=== PATIENT | male | born 1985 | race American Indian/Alaskan Native ===

== ENCOUNTER 2019-10-29 22:06 | Emergency (ER) | payer MEDICAID ==
[2019-10-29 23:39] VITALS: BP 144/101
--- NOTE | 2019-10-30 01:26 | Emergency Department Report ---
ED Psych HPI - General Chief Complaint: Psych Stated Complaint: SHALONDA EVAL Time Seen by Provider: 10/30/19 01:01 Source: patient, EMS Mode of arrival: Stretcher Limitations: No Limitations - History of Present Illness Initial Comments: Patient is a 34-year-old male that was brought in by the police for mental health evaluation. Patient is calm and answering questions appropriately. Patient denies suicidal homicidal ideations. Patient denies hallucinations. Patient states that he was brought in by the police because he was involved in an argument and he was upset. Patient states he has had time to calm down and is feeling fine. Patient states he is ready to go home. Patient states he waited because the nurses and the police told him to. Patient denies chest pain. Patient denies shortness of breath. Patient states he is taking his medications for schizophrenia. Patient states he is feeling fine. Patient denies recent travel. Patient denies recent international travel. Patient denies exposure to the novel coronavirus. Patient denies sick contacts. Patient denies fever and chills. Patient denies cough. Patient denies diarrhea. Patient denies coming in contact with anybody with symptoms of the novel coronavirus.. Complaint: other -: Sudden Associated Psychiatric Symptoms: none History of same: Yes Quality: constant Improves With: none Worsens With: none Context: significant life stressor Associated Symptoms: denies other symptoms. denies: confusion, headache, shortness of breath, nausea, vomiting, syncope, insomnia Treatments Prior to Arrival: none - Related Data Allergies Allergy/AdvReac Type Severity Reaction Status Date / Time No Known Allergies Allergy Unverified 10/29/19 23:39 ED Review of Systems ROS: Stated complaint: MH EVAL Other details as noted in HPI Constitutional: denies: chills, fever Eyes: denies: eye pain, eye discharge, vision change ENT: denies: ear pain, throat pain Respiratory: denies: cough, shortness of breath, wheezing Cardiovascular: denies: chest pain, palpitations Endocrine: no symptoms reported Gastrointestinal: denies: abdominal pain, nausea, diarrhea Genitourinary: denies: urgency, dysuria Musculoskeletal: denies: back pain, joint swelling, arthralgia Skin: denies: rash, lesions Neurological: denies: headache, weakness, paresthesias Psychiatric: denies: anxiety, depression, auditory hallucinations, visual hallucinations, homicidal thoughts, suicidal thoughts Hematological/Lymphatic: denies: easy bleeding, easy bruising ED Past Medical Hx - Past Medical History Previous Medical History?: Yes Hx Psychiatric Treatment: Yes (Schizophrenia) - Surgical History Past Surgical History?: No - Family History Family history: no significant - Social History Smoking Status: Current Every Day Smoker Substance Use Type: None ED Physical Exam - General Limitations: No Limitations General appearance: alert, in no apparent distress - Head Head exam: Present: atraumatic, normocephalic - Eye Eye exam: Present: normal appearance - ENT ENT exam: Present: mucous membranes moist - Neck Neck exam: Present: normal inspection - Respiratory Respiratory exam: Present: normal lung sounds bilaterally. Absent: respiratory distress - Cardiovascular Cardiovascular Exam: Present: regular rate, normal rhythm. Absent: systolic murmur, diastolic murmur, rubs, gallop - GI/Abdominal GI/Abdominal exam: Present: soft, normal bowel sounds - Rectal Rectal exam: Present: deferred - Extremities Exam Extremities exam: Present: normal inspection - Back Exam Back exam: Present: normal inspection - Neurological Exam Neurological exam: Present: alert, oriented X3 - Psychiatric Psychiatric exam: Present: normal affect, normal mood. Absent: depressed, agitated, anxious, flat affect, manic, homicidal ideation, suicidal ideation - Skin Skin exam: Present: warm, dry, intact, normal color. Absent: rash ED Course Vital Signs 10/29/19 23:18 Temperature 99.3 F Pulse Rate 96 H Respiratory 18 Rate Blood Pressure 144/101 O2 Sat by Pulse 99 Oximetry - Reevaluation(s) Reevaluation #1: I discussed all clinical findings with patient. I discussed plan of care with patient. Patient agrees with plan of care. Patient is stable for discharge. Patient will be discharged home. Patient given discharge instructions. Patient voiced understanding of discharge instructions. 10/30/19 01:23 ED Medical Decision Making - Medical Decision Making Patient is a 34-year-old male that presents emergency room for mental evaluation by the police. Patient's symptoms are secondary to him being upset after an argument. Patient any acute psychiatric condition requiring a 1013 or an ER hold. Patient denies suicidal homicidal ideations. Patient denies hallucinations. Patient had a appropriate and fluid conversation and answers all questions appropriately. Patient is medically cleared. Patient does not require further emergency medical services. Patient discharged home. Patient given discharge instructions. - Differential Diagnosis Stress reaction, mental health evaluation Critical care attestation.: If time is entered above; I have spent that time in minutes in the direct care of this critically ill patient, excluding procedure time. ED Disposition Clinical Impression: Encounter for psychological evaluation, Stress reaction Disposition: DC-01 TO HOME OR SELFCARE Is pt being admited?: No Does the pt Need Aspirin: No Condition: Stable Instructions: Stress (ED) Additional Instructions: Patient to follow-up with primary care in 2 to 3 days. Patient to follow-up with psychiatrist in 2 to 3 days. Patient to rest. Patient to increase water. Patient to continue all home medications. Patient to return to the ER if condition worsens, changes or new symptoms arise.. Referrals: PRIMARY CARE, [Primary Care Provider] - 2-3 Days Time of Disposition: 01:27
== END 2019-10-30 01:54 | disposition home or self-care (01) ==
LOC: ED 22:06
DX: F20.89 Other schizophrenia (principal); F17.200 Nicotine dependence, unspecified, uncomplicated

== ENCOUNTER 2019-10-30 22:53 | Emergency (ER) | payer MEDICAID ==
[2019-10-30 23:01] VITALS: BP 136/98
== END 2019-10-31 01:03 | disposition home or self-care (01) ==
LOC: ED 22:53
DX: F20.9 Schizophrenia, unspecified (principal); Z04.6 Encounter for general psychiatric examination, requested by authority; F17.200 Nicotine dependence, unspecified, uncomplicated; Z59.0 Homelessness
CPT/HCPCS: 99282

== ENCOUNTER 2019-11-01 04:12 | Emergency (ER) | payer MEDICAID ==
[2019-11-01 05:58] LABS: Basophils % (Auto) 0.5 % (0.0-1.8); Eosinophils # (Auto) 0.1 K/mm3 (0.0-0.4); Hematocrit 47.3 % (35.5-45.6); Hemoglobin 15.4 gm/dl (11.8-15.2); Lymphocytes # (Auto) 1.4 K/mm3 (1.2-5.4); Lymphocytes % (Auto) 21.6 % (13.4-35.0); Mean Corpuscular HGB Conc 33 % (32-34); Mean Corpuscular Volume 86 fl (84-94); Monocytes # (Auto) 0.8 K/mm3 (0.0-0.8); Monocytes % (Auto) 13.1 % (0.0-7.3); Platelet Count 211 K/mm3 (140-440); Red Blood Count 5.48 M/mm3 (3.65-5.03); Red Cell Distribution Width 13.5 % (13.2-15.2)
[2019-11-01 06:14] LABS: Alanine Aminotransferase 23 units/L (7-56); Albumin 4.4 g/dL (3.9-5); BUN/Creatinine Ratio 8; Blood Urea Nitrogen 7 mg/dL (9-20); Calcium 9.6 mg/dL (8.4-10.2); Hemolysis Index 8
[2019-11-01] MEDS ORDERED: ZIPRASIDONE MESYLATE 20 MG VIAL IM ONE (07:31)
--- NOTE | 2019-11-01 07:34 | Emergency Department Report ---
<ASHLEE ISAACS - Last Filed: 11/01/19 15:51> ED Psych HPI - General Chief Complaint: Headache Stated Complaint: HEAD AND EYE PAIN Time Seen by Provider: 11/01/19 06:13 Source: patient Mode of arrival: Ambulatory Limitations: Other - History of Present Illness Initial Comments: 34-year-old male with a past medical history of schizophrenia was dropped off by the police department for evaluation. As per triage patient complained of pain to head and eyes with burning. Denies blurry vision. Symptoms started several days ago. During my evaluation patient would not communicate with me. He makes partial eye contact and stares away. Nurse covering patient also reports that he has not verbalized why he is here today. Patient was also brought to the ER by police on October 28 and . Patient is homeless and demanded food during previous ER visits with mild psychiatric complaints not necessitating involuntary admission. - Related Data Allergies Allergy/AdvReac Type Severity Reaction Status Date / Time No Known Allergies Allergy Unverified 10/29/19 23:39 ED Review of Systems Comment: All other systems reviewed and negative ED Past Medical Hx - Past Medical History Previous Medical History?: Yes Hx Psychiatric Treatment: Yes (Schizophrenia) - Surgical History Past Surgical History?: No - Social History Smoking Status: Current Every Day Smoker Substance Use Type: None ED Physical Exam - General Limitations: No Limitations - Other Other exam information: General: No acute distress Head: Atraumatic Eyes: normal appearance, pupils equal and reactive to light light ENT: Moist mucous membranes Neck: Normal appearance, no midline tenderness Chest: Clear to auscultation bilaterally CV: Mild tachycardia regular rhythm Abdomen: Soft, normal bowel sounds, nontender, nondistended, no rebound or guarding Back: Normal inspection Extremity: Normal inspection, full range of motion Neuro: Alert O x 3, no facial asymmetry, 5\5 upper and lower extremity Psych: Not speaking, poor eye contact, follows basic commands Skin: No rash ED Course - Reevaluation(s) Reevaluation #1: 11/01/19 15:51 Patient has been in the ER for several hours. Still unable to hold a conve rsation despite Geodon. Unclear if this is selective mutism or acute psychosis. Mental health ramp lead saw patient and will staff it with her nurse practitioner. Still awaiting urine collection. Patient is not a 1013 at this time. ED Medical Decision Making - Lab Data Result diagrams: 11/01/19 05:05 11/01/19 05:05 - Radiology Data Radiology results: report reviewed CT HEAD WITHOUT CONTRAST INDICATION / CLINICAL INFORMATION: Schizophrenia, headache. TECHNIQUE: Axial imaging performed from the skull apex through the skull base without the use of contrast. Sagittal and coronal reformatted images. All CT scans at this location are performed using CT dose reduction for ALARA by means of automated exposure control. COMPARISON: None available. FINDINGS: CEREBRAL PARENCHYMA: No significant abnormality. No acute territorial infarct. HEMORRHAGE: None. EXTRA-AXIAL SPACES: Normal in size and morphology for the patient's age. VENTRICULAR SYSTEM: Normal in size and morphology for the patient's age. MIDLINE SHIFT OR HERNIATION: None. CEREBELLUM / BRAINSTEM: No sig nificant abnormality. CALVARIUM: No significant abnormality. ORBITS: Normal as visualized. PARANASAL SINUSES / MASTOID AIR CELLS: Normal as visualized. SOFT TISSUES of HEAD: No significant abnormality. ADDITIONAL FINDINGS: None. IMPRESSION: Normal CT brain ED Disposition Clinical Impression: Encounter for psychological evaluation Disposition: DC- TO HOME OR SELFCARE Condition: Stable <JOHNNY LEVY - Last Filed: 11/01/19 18:38> ED Review of Systems ROS: Stated complaint: HEAD AND EYE PAIN Other details as noted in HPI ED Course Vital Signs 11/01/19 11/01/19 11/01/19 04:16 07:05 08:04 Temperature 97.0 F L 98.6 F Pulse Rate 112 H 85 87 Respiratory 18 16 15 Rate Blood Pressure 137/101 Blood Pressure 150/87 144/82 [Right] O2 Sat by Pulse 98 98 97 Oximetry ED Medical Decision Making - Lab Data Result diagrams: 11/01/19 05:05 11/01/19 05:05 - Medical Decision Making Patient is a 34-year-old gentleman with a history of schizophrenia. Patient is is on his third day coming to our emergency department being brought in by police. Patient expressed that he does have somewhere stay to our mental health food and beverage lead however the patient voiced complaints of homelessness on the last 2 visits. In either case the patient is calm cooperative and not expressing any thoughts of homicidal suicidal ideations. Patient has been cleared by our mental health assessment team and the patient will be discharged. Critical care attestation.: If time is entered above; I have spent that time in minutes in the direct care of this critically ill patient, excluding procedure time. ED Disposition Is pt being admited?: No Does the pt Need Aspirin: No Time of Disposition: 18:38
[2019-11-01] MEDS ORDERED: WATER FOR INJ Sterile (PF) 10 ML ONE (07:38)
[2019-11-01 08:05] VITALS: BP 144/82
--- NOTE | 2019-11-01 08:10 | Cat Scan Report ---
CT HEAD WITHOUT CONTRAST INDICATION / CLINICAL INFORMATION: Schizophrenia, headache. TECHNIQUE: Axial imaging performed from the skull apex through the skull base without the use of cont rast. Sagittal and coronal reformatted images. All CT scans at this location are performed using CT dose reduction for ALARA by means of automated exposure control. COMPARISON: None available. FINDINGS: CEREBRAL PARENCHYMA: No significant abnormality. No acute territorial infarct. HEMORRHAGE: None. EXTRA-AXIAL SPACES: Normal in size and morphology for the patient's age. VENTRICULAR SYSTEM: Normal in size and morphology for the patient's age. MIDLINE SHIFT OR HERNIATION: None. CEREBELLUM / BRAINSTEM: No significant abnormality. CALVARIUM: No significant abnormality. ORBITS: Normal as visualized. PARANASAL SINUSES / MASTOID AIR CELLS: Normal as visualized. SOFT TISSUES of HEAD: No significant abnormality. ADDITIONAL FINDINGS: None. IMPRESSION: Normal CT brain Signer Name: Ben Villarreal Jr, MD Signed: 11/01/2019 8:06 AM Workstation Name: [id number]
[2019-11-01] MEDS ORDERED: ZIPRASIDONE MESYLATE 20 MG VIAL IM PRN (13:56)
[2019-11-01] MEDS ORDERED: risperiDONE 0.25 MG TAB PO SCH (14:00)
[2019-11-01] MEDS ORDERED: LORazepam 0.5 MG TAB PO SCH (14:00)
[2019-11-01] MEDS ORDERED: traZODone 50 MG TAB PO SCH (22:00)
== END 2019-11-01 18:45 | disposition home or self-care (01) ==
LOC: ED 04:12
DX: R51 Headache (principal); H57.13 Ocular pain, bilateral; F20.9 Schizophrenia, unspecified; F17.200 Nicotine dependence, unspecified, uncomplicated; Z04.6 Encounter for general psychiatric examination, requested by authority
CPT/HCPCS: 36415; 70450; 80053; 85025; 96372; 99285; J3486; 80320; G0480